=== PATIENT | female | born 1985 | race Asian ===

== ENCOUNTER 2019-10-21 02:52 | Inpatient (IN) ==
[2019-10-21] MEDS ORDERED: LACTATED RINGER'S 1,000 ML IV PRN (03:17)
[2019-10-21] MEDS ORDERED: OXYTOCIN 30 UNITS/500 ML BAG IV PRN ×2 (03:17→07:56)
[2019-10-21 03:34] LABS: Hematocrit (blood only) 38.1 % (37-47); Mean Corpuscular Hemoglobin 32.7 pg (25-34); Mean Corpuscular Volume 95.7 fL (80-100); Mean Platelet Volume 12.1 fL (7.4-10.4); Platelet Count 186 K/uL (130-400); RDW Standard Deviation 48.9 fL (36.4-46.3); Red Blood Count 3.98 M/uL (4.2-5.4); White Blood Count 10.09 K/uL (4.8-10.8)
[2019-10-21] MEDS ORDERED: ePHEDrine sulfate 50 MG/ML AMP ONE (03:36)
[2019-10-21] MEDS ORDERED: BUPIVACAINE 0.25% 30 ML VIAL ONE (03:36)
[2019-10-21] MEDS ORDERED: fentaNYL citrate 100 MCG/2 ML VIAL ONE (03:36)
[2019-10-21] MEDS ORDERED: fentaNYL 2MCG/ML ROPIV 1.25MG/ML 100 ML BAG EPI ONE (03:37)
--- NOTE | 2019-10-21 03:54 | Anesthesiology Consultation ---
Date of Service October 21, 2019 Assessment & Plan (1) Encounter for pre-operative examination: Chart Review Chart Review: Acceptable Risk for Surgery and Patient NOT seen in Pre Admission Testing Consults Requested none ASA ASA2 Proposed Anesthesia Anesthesia Type: Spinal Risk / Benefits Reviewed With: PT / POA / Parent / Guardian, Accepts Plan and Informed Consent Obtained Additional Notes Spinal for multip close to vaginal delivery History Allergies Allergy/AdvReac Type Severity Reaction Status Date / Time No Known Allergies Allergy Verified 10/16/19 09:35 Medications Home Medications Medication Instructions Recorded Confirmed Last Taken tenofovir disoproxil fumarate PO DAILY 04/04/19 10/16/19 Unknown prenat.vits,andrés,zuk-tazc-phyns 1 tab PO DAILY 04/11/19 10/16/19 Unknown ferrous sulfate PO 10/16/19 10/16/19 Unknown NPO Date Last Intake of Fluids: 10/20/19 Time Last Intake of Fluids: 04:13 Date Last Intake of Solids: 10/20/19 Time Last Intake of Solids: 19:00 Past Medical History Medical History History of chicken pox Exercise / Class Metabolic Activity II 4-5 Yardwork/Stairs/Walk up hill Past Family History Family History Mother Hepatitis B Father Hepatitis B Past Surgical History Surgical History S/P wisdom tooth extraction Past Anesthesia History No Hx of Anesthesia Complications History of PONV No Hx of PONV Social History Smoking Status: Never smoker Hx Alcohol Use: No Hx Substance Use: No Review of Systems Patient denies history of abnormal bleeding or bleeding disorder. Patient d enies active use of anticoagulants other than low dose aspirin. Patient denies numbness, tingling or weakness in lower extremities. Negative for chest pain or shortness of breath. Physical Exam Vital Signs Last Vital Signs Temp 36.8 C 10/21/19 03:08 Pulse 70 10/21/19 03:08 Resp 18 10/21/19 03:08 BP 123/73 10/21/19 03:08 Constitutional not obese (gravid uterus) ENMT Mouth: no TMJ abnormality and oral opening not small Thyromental Distance: > or= 3.5 Finger Breadths Mallampati Class: II Neck normal visual inspection; neck extension not limited Respiratory normal respiratory effort Auscultation: lungs clear to auscultation bilaterally Cardiovascular Rate/Rhythm: regular rate and regular rhythm Heart Sounds: no murmur Neurologic moves all extremities Psychiatric Orientation: alert and oriented x 3 Testing Laboratory Results 10/21/19 03:27
[2019-10-21 03:59] LABS: Mean Corpuscular Hgb Conc 34.1 g/dL (32-36)
--- NOTE | 2019-10-21 04:45 | History & Physical Report ---
Date of Service October 21, 2019 Assessment & Plan (1) Hepatitis B affecting : (2) Normal labor: has spinal and will push when gets a little more comfortable. fetus reassuring. anticipate . Admission and Anticipated Discharge Date Admission Date: October 21, 2019 History of Present Illness Chief Complaint: contractions Primary Care Provider: CHRISTIAN PCP Patient is a 34yo female who presents to labor and delivery at 39 1/7 weeks with active labor. First call about 1:30 with contractions q 7-8min, called again about one hour later q 5min. no lof/vb. +fm. Arrived on the unit about 3am and found to be 5cm. complicated by chronic HepB for which she has been on therapy. labs--O+/ab-/ri/rprnr/ Hepb s ag+/ hiv-/hepc-/gc/ct-/ cf/sma-/panorama low risk/gbs neg/afp neg hepb c IGM nr, HepB DNa not dectectible, Hepb e ag, nr Allergies Allergy/AdvReac Type Severity Reaction Status Date / Time No Known Allergies Allergy Verified 10/16/19 09:35 Home Medications Home Medications Medication Instructions Recorded Confirmed Type tenofovir disoproxil fumarate PO DAILY 04/04/19 10/16/19 History prenat.vits,andrés,wmy-gcxq-qblmm 1 tab PO DAILY 04/11/19 10/16/19 History ferrous sulfate PO 10/16/19 10/16/19 History Patient History Medical History (Updated 10/21/19 @ 04:53 by Jeis Salcido MD, FACOG) Chronic hepatitis B History of chicken pox Surgical History S/P wisdom tooth extraction Family History Mother Hepatitis B Father Hepatitis B Social History Smoking Status: Never smoker Hx Alcohol Use: No Hx Substance Use: No Preferred Language: Malagasy Communication Ability: Effective Beliefs That Will Affect Care: None marital status: marital status details: Fidencio Freedman (42) [phone] Current Living Situation: Family Current Living Situation Comment: lives with spouse, son, dog current occupational status: employed current occupation: [employer] Feels Safe at Home: Yes Safety Concerns: Feels Safe At This Time OB History g1--07/23, 40 weeks, , 7# COAL [employer] History noncontributory Review of Systems All systems reviewed & are unremarkable except as noted in HPI & below Physical Exam Constitutional: WD/WN, vitals as above Gastrointestinal (Abdomen): soft and gravid Psychiatric: A+Ox3, euthymic affect Genitourinary: cx--c/c by nursing srom with spinal toco--q2min efm--130s with mod variability, small accels , no decels Results & Data ([facility]) Vital Signs (Past 12 Hours) Vital Signs Temp Pulse Resp BP Pulse Ox 10/21/19 04:41 68 103/61 10/21/19 04:40 69 97 10/21/19 04:38 68 110/58 L 10/21/19 04:36 67 115/61 10/21/19 04:35 66 97 10/21/19 04:34 64 114/61 10/21/19 04:32 66 112/60 10/21/19 04:30 64 97 10/21/19 04:29 65 111/53 L 10/21/19 04:28 70 94 10/21/19 04:25 78 95 10/21/19 04:21 81 118/56 L 10/21/19 04:20 81 96 10/21/19 04:19 64 120/86 10/21/19 04:15 121 H 86 L 10/21/19 04:10 79 124/69 97 10/21/19 04:08 62 119/56 L 10/21/19 04:05 90 98 10/21/19 04:02 107 H 94 10/21/19 04:00 75 95 10/21/19 03:56 96 H 92 10/21/19 03:54 101 H 96 10/21/19 03:08 36.8 C 70 18 123/73 Code Status & VTE Plan VTE Prophylaxis Plan VTE Prophylaxis will be ordered: No Coding Level of Care Code None Diagnoses Hepatitis B affecting O98.419; B19.10 Normal labor O80; Z37.9
--- NOTE | 2019-10-21 04:55 | Delivery Summary ---
Vaginal Delivery Summary Date of Service October 21, 2019 Vaginal Delivery Summary Pre-operative Diagnosis: at 39 weeks active labor chronic hep B Post-operative Diagnosis: same Procedure: spinal repair of first degree laceration EBL: 300cc Anesthesia: spinal Procedure: The patient pushed for 2-3 contractions to deliver a viable female in concha position. The rest of the was then delivered without difficulty through a body cord. The baby was vigorous. The nose and mouth were bulb suctioned and the infant was placed in the maternal abdomen for drying and attention. Cord was clamped and cut at one minute of life. Cord blood and segment obtained. Placenta delivered spontaneous, intact with a three vessel cord. Cervix/sulci/rectum were intact. A first degree perineal laceration was repaired in the normal standard fashion. Hemostasis obtained with dilute pitocin and fundal massage. Apgars were pending. Mother and baby doing well at the end of the delivery. [facility] [place] Vaginal Delivery Codes: 68435 global code for the antepartum, delivery, and post-
--- NOTE | 2019-10-21 06:08 | Anesthesiology Progress Note ---
Date of Service October 21, 2019 Anesthesia Post Procedure Vital Signs Vital Signs: Temp Pulse Resp BP Pulse Ox 10/21/19 05:58 53 L 108/60 10/21/19 05:43 53 L 118/65 10/21/19 05:28 54 L 18 118/62 10/21/19 05:13 55 L 18 114/56 L 10/21/19 04:58 64 111/54 L 10/21/19 04:57 18 10/21/19 04:42 64 18 116/64 10/21/19 04:41 68 103/61 10/21/19 04:40 69 97 10/21/19 04:38 68 110/58 L 10/21/19 04:36 67 115/61 10/21/19 04:35 66 97 10/21/19 04:34 64 114/61 10/21/19 04:32 66 112/60 10/21/19 04:30 64 97 10/21/19 04:29 65 111/53 L 10/21/19 04:28 70 94 10/21/19 04:25 78 95 10/21/19 04:21 81 118/56 L 10/21/19 04:20 81 96 10/21/19 04:19 64 120/86 10/21/19 04:15 121 H 86 L 10/21/19 04:10 79 124/69 97 10/21/19 04:08 62 119/56 L 10/21/19 04:05 90 98 10/21/19 04:02 107 H 94 10/21/19 04:00 75 95 10/21/19 03:56 96 H 92 10/21/19 03:54 101 H 96 10/21/19 03:08 36.8 C 70 18 123/73 Pain Intensity Bilateral Lower Abdomen: Pain Intensity: 3 Transfer of Care Handoff Completed per policy Notes Mental Status: alert / awake / arousable and participated in evaluation Nausea / Vomiting: adequately controlled Pain: adequately controlled Airway Patency, RR, SpO2: stable & adequate BP & HR: stable & adequate Hydration State: stable & adequate Neuraxial Anesthesia: was administered and sensory block is resolving Anesthetic Complications: no major complications apparent and Pt Satisfied with anesthetic care
[2019-10-21] MEDS ORDERED: SUPERCREAM 0.870% 15 GM JAR EXT PRN (07:56)
[2019-10-21] MEDS ORDERED: OXYCODONE/ACETAMINOPHEN 5mg/325mg TAB PO PRN (07:56)
[2019-10-21] MEDS ORDERED: METHYLERGONOVINE MALEATE 0.2 MG/ML AMP IM ONE (07:56)
[2019-10-21] MEDS ORDERED: BENZOCAINE 20% AER SPR 82.5 GM CAN EXT PRN (07:56)
[2019-10-21] MEDS ORDERED: ACETAMINOPHEN 325 MG TAB PO PRN (07:56)
[2019-10-21] MEDS ORDERED: HYDROCORTISONE ACETATE 25 MG SUPP PR PRN (07:56)
[2019-10-21] MEDS ORDERED: bisacodyL 10 MG SUPP PR PRN (07:56)
[2019-10-21] MEDS ORDERED: DIPHTHERIA/TETANUS/PERTUSSIS 0.5 ML SYR/VIAL IM ONE (07:56)
[2019-10-21] MEDS: DOCUSATE SODIUM 100 MG CAP PO SCH ×2 (08:16→19:26)
[2019-10-21] MEDS: PRENATAL VITAMIN 1 TAB PO SCH (08:16)
[2019-10-21] MEDS: IBUPROFEN 600 MG TAB PO PRN ×2 (09:05→15:16)
[2019-10-22] MEDS: IBUPROFEN 600 MG TAB PO PRN ×3 (00:56→20:32)
[2019-10-22 06:16] LABS: Hematocrit (blood only) 32.2 % (37-47); Hemoglobin 10.9 g/dL (12.0-16.0)
--- NOTE | 2019-10-22 08:02 | Obstetrical Progress Note ---
Date of Service October 22, 2019 Assessment & Plan (1) Encounter for care and examination after delivery: normal recovery continue current care plan Day #:: 1 Subjective Ambulation: ambulating normally Passing Gas:: Yes Diet Tolerance:: regular diet Lochia:: Small Feeding Type:: breast feeding supplementing with formula with each event. Review of Systems All systems reviewed & are unremarkable except as noted in HPI & below Physical Exam Constitutional WD/WN, vitals as above Psychiatric A+Ox3, euthymic affect Genitourinary OB Exam Abdomen: + fundal height Fundus: + firm and + relation to umbilicus (2 below U) Results & Data ([facility]) Vital Signs (Past 12 Hours) Vital Signs Temp Pulse Pulse Resp BP BP Pulse Ox 10/22/19 03:30 97.5 F L 60 16 103/64 96 10/22/19 00:40 98.2 F 67 18 105/70 97
[2019-10-22] MEDS: PRENATAL VITAMIN 1 TAB PO SCH (08:36)
[2019-10-22] MEDS: DOCUSATE SODIUM 100 MG CAP PO SCH ×2 (08:36→20:31)
[2019-10-22] MEDS ORDERED: bisacodyL 5 MG TABEC PO SCH (20:00)
--- NOTE | 2019-10-23 07:00 | Obstetrical Progress Note ---
Date of Service October 23, 2019 Assessment & Plan (1) Encounter for care and examination after delivery: Doing well PPD#2, discharge instructions reviewed with pt and FOB, all questions answered. Subjective Ambulation: ambulating normally Voiding: no voiding problems Passing Gas:: Yes Diet Tolerance:: regular diet Lochia:: Small Physical Exam Constitutional WD/WN, vitals as above Eyes PERRL, conjunctivae normal, anicteric sclerae Neck normal visual inspection Respiratory normal respiratory effort and able to speak in complete sentences; no respiratory distress and no labored breathing Cardiovascular Rate/Rhythm: regular rate and regular rhythm Extremities: no edema Chest (Breasts) Chest: normal inspection of chest Gastrointestinal (Abdomen) Inspection/Auscultation: abdomen normal to inspection Soft, postgravid Psychiatric A+Ox3, euthymic affect Genitourinary OB Exam Abdomen: + fundal height Fundus: + firm and + relation to umbilicus (fundus just below umbilicus); not tender Results & Data ([facility]) Vital Signs (Past 12 Hours) Vital Signs Temp Pulse Resp BP Pulse Ox 10/23/19 00:00 97.7 F 68 16 110/70 95 10/22/19 20:20 97.7 F 76 16 112/71 97
[2019-10-23] MEDS: PRENATAL VITAMIN 1 TAB PO SCH (08:18)
[2019-10-23] MEDS: IBUPROFEN 600 MG TAB PO PRN (08:18)
[2019-10-23] MEDS: DOCUSATE SODIUM 100 MG CAP PO SCH (08:18)
== END 2019-10-23 15:15 | disposition home or self-care (01) | DRG 807 ==
LOC: OPB 02:52 → 4S1 02:56 → 4S2 07:07